=== PATIENT | female | born 1945 | race Caucasian/White ===

== ENCOUNTER → 2020-12-07 | Outpatient (CLI) | payer MEDICARE ==
[2014-08-27 13:05] VITALS: BP 166/90
[~2020-12-07] MED LIST: LEVO25TA4 PO; MAGN27TA3 PO; METH4TAB2 PO
--- NOTE | 2020-12-07 10:26 | RAD ---
EXAM: Bilateral digital screening mammogram with tomosynthesis. HISTORY: 74-year-old female presents for screening mammography. TECHNIQUE: Full-field digital craniocaudal and mediolateral oblique 2D and 3D tomosynthesis images of both breasts are obtained for evaluation. Computer aided detection was applied. COMPARISON: 07/03/2015 BREAST PARENCHYMAL DENSITY: Level A - Mostly fat. FINDINGS: There is no new suspicious mass, microcalcification or region of architectural distortion. There is stable areas of nodularity and asymmetry within both breasts, allowing for differences in im aging technique. There has been interval increase in benign calcifications within the anterior right breast. No suspicious calcification is seen. IMPRESSION: BI-RADS Category 2: Benign finding(s). RECOMMENDATION: Annual mammography is recommended. If your mammogram demonstrates that you have dense breast tissue, which could hide abnormalities, and if you have other risk factors for breast cancer that have been identified, you might benefit from s upplemental screening tests that may be suggested by your ordering physician. Dense breast tissue, i n and of itself, is a relatively common condition. This information is not provided to cause undue c oncern, but rather to raise your awareness and to promote discussion with your physician regarding th e presence of other risk factors, in addition to dense breast tissue. A report of your mammography re sults will be sent to you and your physician. You should contact your physician if you have any ques tions or concerns regarding this report. Mammography is a sensitive method for finding small breast cancers, but it does not detect them all a nd is not a substitute for careful clinical examination. A negative mammogram does not negate a clin ically suspicious finding and should not result in delay in biopsying a clinically suspicious abnorma lity. PQRS compliance statement - Patient information was entered into a reminder system with a target due date for the next mammogram. "Our facility is accredited by the [employer] Mammography Program." Electronically signed by: Lela Quarles MD (12/07/2020 10:23 AM) [id number]
== END ==
LOC: MAMMO 08:27
PROVIDERS: ATTEND Family Medicine
DX: Z12.31 Encounter for screening mammogram for malignant neoplasm of breast (principal)
CPT/HCPCS: 77063; 77067

== ENCOUNTER 2021-05-23 18:53 | Inpatient (IN) | payer MEDICARE ==
[~2021-05-23] VITALS: Ht 165.1 cm; Wt 110.0 kg
[2021-05-23] MEDS ORDERED: IPRATRPIUM/ALBUTEROL 0.5/2.5MG 3 ML NEBU. ONE ×2 (19:22→19:33)
--- NOTE | 2021-05-23 19:42 | PHYS DOC ---
Past History Past Medical History: COPD, Hypothyroid (COLE ROMERO APRN) Past Surgical History: Other (COLE ROMERO APRN) Alcohol Use: None Drug Use: None (COLE ROMERO APRN) General Adult EDM: Chief Complaint: SHORTNESS OF BREATH HPI: HPI: Patient is a 75-year-old female who presents with shortness of breath and COPD exacerbation. Patient states symptoms started on Monday and have progressively gotten worse. EMS states patient's O2 was 88% on arrival. Patient was placed on 3 L. Denies fever, recent illness or exposure to a sick contact. Patient is a smoker. History of hypertension and COPD. Patient is not vaccinated for Covid. (COLE ROMERO APRN) Review of Systems: Review of Systems: Constitutional: Denies fever or chills Eyes: Denies change in visual acuity HENT: Denies nasal congestion or sore throat Respiratory: Denies cough or shortness of breath Cardiovascular: Denies chest pain or edema GI: Denies abdominal pain, nausea, vomiting, bloody stools or diarrhea : Denies dysuria Musculoskeletal: Denies back pain or joint pain Integument: Denies rash Neurologic: Denies headache, focal weakness or sensory changes Endocrine: Denies polyuria or polydipsia Lymphatic: Denies swollen glands Psychiatric: Denies depression or anxiety (COLE ROMERO APRN) Current Medications: Current Meds: Current Medications Medications (Trade) Dose Ordered Sig/Artie Start Time Stop Time Status Last Admin Dose Admin Albuterol/ Ipratropium (Duoneb) 3 ml STK-MED ONCE 05/23/21 19:33 05/23/21 19:34 DC (COLE ROMERO APRN) Allergies: Allergies: Allergies Coded Allergies Type Severity Reaction Last Updated Verified tetanus immune globulin Allergy Unknown 08/27/14 No (COLE ROMERO APRN) Physical Exam: PE: Constitutional: Well developed, well nourished, no acute distress, non-toxic appearance. [] HENT: Normocephalic, atraumatic, bilateral external ears normal, oropharynx moist, no oral exudates, nose normal. [] Eyes: PERRLA, EOMI, conjunctiva normal, no discharge. [] Neck: Normal range of motion, no tenderness, supple, no stridor. [] Cardiovascular:Heart rate regular rhythm, no murmur [] Lungs & Thorax: Bilateral breath wheezing, coarse Abdomen: Bowel sounds normal, soft, no tenderness, no masses, no pulsatile masses. [] Skin: Warm, dry, no erythema, no rash. [] Back: No tenderness, no CVA tenderness. [] Extremities: No tenderness, no cyanosis, no clubbing, ROM intact, no edema. [] Neurologic: Alert and oriented X 3, normal motor function, normal sensory function, no focal deficits noted. [] Psychologic: Anxious affect (COLE ROMERO APRN) Current Patient Data: Vital Signs: Vital Signs Date Time Temp Pulse Resp B/P (MAP) Pulse Ox O2 Delivery O2 Flow Rate FiO2 05/23/21 18:57 98.2 65 22 96 Nasal Cannula 3.0 (COLE ROMERO APRN) EKG: EKG: Sinus rhythm, abnormal left axis deviation, heart rate 80 bpm. No STEMI. [] (COLE ROMERO APRN) Radiology/Procedures: Radiology/Procedures: []Exam: Chest one view INDICATION: Shortness of breath TECHNIQUE: Frontal and lateral views the chest Comparisons: None FINDINGS: The cardiomediastinal silhouette and pulmonary vessels are within normal limits. The lung and pleural spaces are clear. IMPRESSION: No acute cardiopulmonary process. Electronically signed by: Diaz Aldana MD (05/23/2021 9:40 PM) [facility] (COLE ROMERO APRN) Heart Score: C/O Chest Pain: No Risk Factors: Risk Factors: DM, Current or recent (<one month) smoker, HTN, HLP, family history of CAD, obesity. Risk Scores: Score 0 - 3: 2.5% MACE over next 6 weeks - Discharge Home Score 4 - 6: 20.3% MACE over next 6 weeks - Admit for Clinical Observation Score 7 - 10: 72.7% MACE over next 6 weeks - Early Invasive Strategies (COLE ROMERO APRN) Course & Med Decision Making: Course & Med Decision Making Pertinent Labs and Imaging studies reviewed. (See chart for details) [] 75-year-old female presents with shortness of breath that started on Monday. Patient is a history of COPD but does not wear home oxygen. When patient was taken off oxygen her sats dropped to 88-89%. Patient said to be on 3 L of oxygen while in the ER to keep oxygen saturation above 90%. Patient's oxygen saturation has stayed at 93-94%. Patient given breathing treatment to help with symptoms. Chest x-ray is unremarkable. All labs unremarkable. Influenza positive. Patient requesting second breathing treatment. Discussed results with patient. I advised patient she would need to be admitted to the hospital for hypoxia. Patient states that she agrees with admission plan. I called Dr. Wright who is willing to accept patient on med telemetry for hypoxia and COPD Exacerbation, in [facility]. Patient given Levaquin, dexamethasone, Tamiflu while in the ER. VBG is pending results. (COLE ROMERO APRN) Dragon Disclaimer: Dragon Disclaimer: This electronic medical record was generated, in whole or in part, using a voice recognition dictation system. (COLE ROMERO APRN) Departure Departure: Condition: STABLE Referrals: TARA KHALIL MD (PCP) Dragon Disclaimer This chart was dictated in whole or in part using Voice Recognition software in a busy, high-work load, and often noisy Emergency Department environment. It may contain unintended and wholly unrecognized errors or omissions. (BURKE PEARL MD) Attending Signature Attending Signature I have participated in the care of this patient and I have reviewed and agree with all pertinent clinical information above including history, exam, and recommendations. (BURKE PEARL MD) COLE ROMERO APRN May 23, 2021 19:42 BURKE PEARL MD May 24, 2021 04:56
[2021-05-23] MEDS ORDERED: DEXAMETHASONE SOD PHOS 10 MG/ML VIAL. IVP ONE (19:45)
[2021-05-23 20:10] LABS: CALCIUM 9.6 mg/dL (8.5-10.1); CREATININE 0.8 mg/dL (0.6-1.0); GFR 70.1
[2021-05-23 20:16] LABS: ALBUMIN 3.6 g/dL (3.4-5.0); ALBUMIN/GLOBULIN RATIO 0.9 (1.0-1.7); MAGNESIUM 1.9 mg/dL (1.8-2.4); TOTAL BILIRUBIN 0.7 mg/dL (0.2-1.0); TOTAL PROTEIN 7.6 g/dL (6.4-8.2)
[2021-05-23 20:46] LABS: BASO % 1 % (0-3); EOS % 1 % (0-3); HEMATOCRIT 39.7 % (36.0-47.0); HEMOGLOBIN 13.4 g/dL (12.0-15.5); LYMPH # 1.1 x10^3/uL (1.0-4.8); LYMPH % 15 % (24-48); MEAN CORPUSCULAR HEMOGLOBIN 29 pg (25-35); MEAN CORPUSCULAR HGB CONC 34 g/dL (31-37); MEAN CORPUSCULAR VOLUME 85 fL (79-100); MONO # 0.6 x10^3/uL (0.0-1.1); MONO % 8 % (0-9); NEUT # 5.6 x10^3uL (1.8-7.7); NEUT % 76 % (31-73); PLATELET COUNT 142 x10^3/uL (140-400); RED BLOOD COUNT 4.68 x10^6/uL (3.50-5.40); RED CELL DISTRIBUTION WIDTH 14.7 % (11.5-14.5); WHITE BLOOD COUNT 7.3 x10^3/uL (4.0-11.0)
--- NOTE | 2021-05-23 21:43 | RAD ---
Exam: Chest one view INDICATION: Shortness of breath TECHNIQUE: Frontal and lateral views the chest Comparisons: None FINDINGS: The cardiomediastinal silhouette and pulmonary vessels are within normal limits. The lung and pleural spaces are clear. IMPRESSION: No acute cardiopulmonary process. Electronically signed by: Diaz Aldana MD (05/23/2021 9:40 PM) JUAAN
[2021-05-23 22:03] LABS: INFLUENZA A PATIENT NEGATIVE (NEGATIVE)
[2021-05-23 22:06] LABS: INFLUENZA B PATIENT POSITIVE (NEGATIVE)
[2021-05-23] MEDS ORDERED: IPRATROPIUM BROMIDE 0.5 MG/2.5 ML NEBU. NEB ONE (22:30)
[2021-05-23] MEDS: IV NORMAL SALINE 1,000ML 1,000 ML IV SCH (23:00)
[2021-05-23] MEDS ORDERED: OSELTAMIVIR 75 MG CAPSULE PO ONE (23:00)
[2021-05-23 23:50] VITALS: BP 167/100
[2021-05-24] MEDS ORDERED: CRAN250C PO (00:50)
[2021-05-24] MEDS ORDERED: UBID100C26 PO (00:50)
[2021-05-24] MEDS ORDERED: LEVO112T4 PO (00:50)
[2021-05-24] MEDS ORDERED: ASPI-630 PO (00:50)
[2021-05-24] MEDS ORDERED: POTA8TAB57 PO (00:50)
[2021-05-24] MEDS ORDERED: OXYC-325 PO (00:50)
[2021-05-24] MEDS ORDERED: DOCU-109 PO (00:50)
[2021-05-24] MEDS ORDERED: METF500T16 PO (00:50)
[2021-05-24] MEDS ORDERED: MORP-16 PO (00:50)
[2021-05-24] MEDS ORDERED: MAGN200T PO (00:50)
[2021-05-24] MEDS ORDERED: VITA400T6 PO (00:50)
[2021-05-24] MEDS ORDERED: CARV12.53 PO (00:50)
[2021-05-24] MEDS: oxyCODONE/APAP 5/325 1 TAB TABLET PO PRN ×4 (03:56→19:02)
[2021-05-24] MEDS ORDERED: IPRATROPIUM BROMIDE 0.5 MG/2.5 ML NEBU. ONE (05:08)
[2021-05-24] MEDS: IPRATROPIUM BROMIDE 0.5 MG/2.5 ML NEBU. NEB SCH ×4 (05:33→19:24)
[2021-05-24 05:50] VITALS: BP 162/88
[2021-05-24] MEDS: LEVOTHYROXINE 112 MCG TABLET PO SCH (06:11)
[2021-05-24] MEDS: ASPIRIN CHEWABLE 81 MG TABLET. PO SCH (07:42)
[2021-05-24] MEDS: metFORMIN 500 MG TABLET PO SCH ×2 (07:42→17:01)
[2021-05-24] MEDS: OSELTAMIVIR 75 MG CAPSULE PO SCH ×2 (07:42→20:24)
[2021-05-24] MEDS: POTASSIUM CHLORIDE 10 MEQ TABLET.ER. PO SCH (07:42)
[2021-05-24] MEDS: MAGNESIUM OXIDE 400 MG TABLET PO SCH (07:42)
[2021-05-24] MEDS: CARVEDILOL 12.5 MG TABLET PO SCH ×2 (07:42→17:01)
[2021-05-24] MEDS: MORPHINE ER 30 MG TABLET.ER PO SCH ×2 (07:43→20:25)
[2021-05-24] MEDS: DEXAMETHASONE SOD PHOS 10 MG/ML VIAL. IV SCH (07:44)
[2021-05-24] MEDS ORDERED: NON FORMULARY ITEM (Cranberry Extract (Cranberry) 250 MG) PO SCH (09:00)
[2021-05-24 11:05] VITALS: BP 158/84
[2021-05-24] MEDS: IV NORMAL SALINE 1,000ML 1,000 ML IV SCH ×2 (12:34→20:34)
[2021-05-24 14:50] VITALS: BP 168/97
[2021-05-24] MEDS ORDERED: KETOROLAC 30 MG/ML VIAL. IVP ONE (16:45)
--- NOTE | 2021-05-24 17:09 | HP ---
DATE OF SERVICE: 05/24/2021 ADMIT DATE: 05/23/2021 HISTORY OF PRESENT ILLNESS: The patient is a 75-year-old female patient who presented to the Emergency Room with a complaint of shortness of breath. Her symptoms started last Monday and progressed since then. She did complain of headache, cough and shortness of breath and generalized aches and pains. However, she denied any chills, rigors or fever. She denied any ill contact. She is a smoker, quit smoking last Monday. She is not vaccinated for COVID or the flu. She was extensively evaluated in the Emergency Room and has had lab work and imaging studies. Her lab work was mostly unremarkable and her chest x-ray showed no acute cardiopulmonary process; however, she was positive for influenza B. Her coronavirus by PCR was negative. The patient was admitted with influenza B as well as COPD exacerbation. PAST MEDICAL HISTORY: Significant for type 2 diabetes mellitus, hypertension, chronic obstructive pulmonary disease, liver cirrhosis and generalized osteoarthritis. PAST SURGICAL HISTORY: Significant for right shoulder surgery, 5 back surgeries, 3 C-sections, appendectomy, total abdominal hysterectomy, tonsillectomy, left breast biopsy and right eye cataract extraction. ALLERGIES: SHE IS ALLERGIC TO TETANUS VACCINE. MEDICATIONS: She is currently on the following medication: She is on carvedilol 12.5 mg twice a day, aspirin 81 mg once a day, morphine sulfate extended release 30 mg twice a day, oxycodone/APAP 5/325 one tablet 4 times a day as needed, magnesium oxide 200 mg once a day, potassium chloride 8 mEq once a day, Colace 100 mg once a day as needed. She is on metformin 500 mg twice a day, levothyroxine sodium 112 mcg once a day, vitamin E 400 units once a day, cranberry extract 250 mg once a day, CoQ10 100 mg once a day. FAMILY HISTORY: She has 4 sisters and 2 brothers, 1 brother because of complication of diabetes. Her father at the age of 77 because of complication of diabetes and what seems to be severe peripheral vascular disease. Mother at age of 83 because of cerebrovascular accident. SOCIAL HISTORY: She lives alone. She has 2 sons and 1 daughter. She quit smoking 4 days ago. Does not drink alcohol or use any drugs. 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 REVIEW OF SYSTEMS: The patient has denied any blurring of vision. Did have cataract removed from her right eye, but denied any glaucoma or macular degeneration. Denied any earache, tinnitus or sensory deafness. Denied nosebleed, stuffy nose or postnasal drip. Denied any sore throat, sore tongue, toothache, hoarseness of voice or difficulty swallowing. Denied any nausea, vomiting, diarrhea or constipation. PHYSICAL EXAMINATION: GENERAL: On arrival to the Emergency Room, she was somewhat tachypneic, but there was no pallor, jaundice, cyanosis, no lymphadenopathy, no thyromegaly, no jugular venous distention. No lower limb edema. VITAL SIGNS: Her heart rate was 65, her blood pressure was 167/100, temperature was 98.4, respiratory rate 22, and oxygen saturation was 96% on 2 liters of oxygen. HEAD, EYES, EARS, NOSE, AND THROAT: Normocephalic, atraumatic. NECK: Supple. HEART: Normal first and second heart sounds. No gallop, rub or murmur. CHEST: Showed central trachea. According to the ER physician, when she arrived, her lungs showed bilateral wheezing, but no crepitation. ABDOMEN: Her abdomen was distended, soft, nontender. NEUROLOGIC: She was grossly intact. LABORATORY DATA: Her lab work on arrival showed her white cell count was 7300, hemoglobin 13, hematocrit 39, MCV 85 and platelet count of 142,000 with normal manual differential. Her chemistry showed a serum sodium 137, potassium 4, chloride 98, bicarbonate 28, anion gap of 11, BUN 9, creatinine was 0.8. Estimated GFR was 70 mL per minute. Her glucose 155. Lactic acid was 1.3. Calcium was 9.6, magnesium was 1.9. Total bilirubin, AST, ALT, alkaline phosphatase were normal. Her total protein 7.6, albumin 3.6. Her coronavirus by PCR was negative. Her influenza A was negative and influenza B was positive. ASSESSMENT AND PLAN: In summary, this is a 75-year-old female patient who was admitted with influenza B and chronic obstructive pulmonary disease exacerbation. She has multiple other medical problems including type 2 diabetes, hypertension, liver cirrhosis and generalized osteoarthritis. The plan is to reconcile all her medications. We added Tamiflu 75 mg twice a day. We will continue with all her other medication. We will continue with nebulized treatment and steroids and monitor her response on a daily basis. She is now continued also on the oxygen supplementation as needed. ELIZABETH/JULIANA DR: Jenelle TID: [id number]
[2021-05-24 19:52] VITALS: BP 155/72
[2021-05-24] MEDS: VITAMIN E. 400 UNIT CAPSULE. PO SCH (20:24)
[2021-05-24] MEDS ORDERED: NON FORMULARY ITEM (Ubidecarenone (Coq-10) 100 MG) PO SCH (21:00)
[2021-05-24] MEDS: KETOROLAC 15 MG/ML VIAL. IVP PRN (22:42)
[2021-05-24 22:52] VITALS: BP 154/72
[2021-05-25] MEDS: oxyCODONE/APAP 5/325 1 TAB TABLET PO PRN ×3 (02:57→19:28)
[2021-05-25] MEDS: IPRATROPIUM BROMIDE 0.5 MG/2.5 ML NEBU. NEB SCH ×4 (04:54→19:11)
[2021-05-25] MEDS: KETOROLAC 15 MG/ML VIAL. IVP PRN ×2 (05:21→15:34)
[2021-05-25] MEDS: LEVOTHYROXINE 112 MCG TABLET PO SCH (05:21)
[2021-05-25 05:32] VITALS: BP 161/77
--- NOTE | 2021-05-25 06:33 | EKG ---
[address] [address] Test Date: 2021-05-23 Test Time: 19:11:39 Pat Name: LORENZO LUCERO Department: Room: 123 A Gender: F Maintenance Mechanic Telephone: CECILIA : 1945 Requested By: TAWANA CARRIZALES Order Number: [id number] Reading MD: Doc Chowdary MD Measurements Intervals [place] Rate: 80 P: 56 ME: 182 QRS: -40 QRSD: 86 T: 34 QT: 352 QTc: 409 Interpretive Statements SINUS RHYTHM Electronically Signed On 05-25-2021 9:45:44 VP INFORMATION TECHNOLOGY by Doc Chowdary MD
[2021-05-25] MEDS: CARVEDILOL 12.5 MG TABLET PO SCH ×2 (07:40→17:33)
[2021-05-25] MEDS: metFORMIN 500 MG TABLET PO SCH ×2 (07:40→17:32)
[2021-05-25] MEDS: POTASSIUM CHLORIDE 10 MEQ TABLET.ER. PO SCH (08:06)
[2021-05-25] MEDS: OSELTAMIVIR 75 MG CAPSULE PO SCH ×2 (09:02→21:06)
[2021-05-25] MEDS: MAGNESIUM OXIDE 400 MG TABLET PO SCH (09:02)
[2021-05-25] MEDS: MORPHINE ER 30 MG TABLET.ER PO SCH ×2 (09:03→21:06)
[2021-05-25] MEDS: DEXAMETHASONE SOD PHOS 10 MG/ML VIAL. IV SCH (09:05)
[2021-05-25] MEDS: ASPIRIN CHEWABLE 81 MG TABLET. PO SCH (09:08)
[2021-05-25 10:52] VITALS: BP 175/90
[2021-05-25 15:26] VITALS: BP 147/73
[2021-05-25 19:52] VITALS: BP 157/73
[2021-05-25] MEDS: VITAMIN E. 400 UNIT CAPSULE. PO SCH (21:06)
[2021-05-25 23:41] VITALS: BP 150/67
--- NOTE | 2021-05-25 23:48 | PN ---
DATE: 05/25/2021 SUBJECTIVE: The patient is resting slightly propped up in bed, feeling generally better than yesterday, continued to have headache and cough. Continues with complaint of generalized aches and pains. PHYSICAL EXAMINATION: GENERAL: When I examined her this afternoon, she was resting slightly propped up in bed, in no apparent distress. No pallor, jaundice, cyanosis, or thyromegaly. No jugular venous distention. No limb edema. VITAL SIGNS: Her heart rate was 63, blood pressure 147/73, temperature 98.3, respiratory rate 20, and oxygen saturation was 92% on room air. HEAD, EYES, EARS, NOSE, AND THROAT: Normocephalic, atraumatic. NECK: Supple. HEART: Normal first and second heart sounds, no gallop, rub or murmur. CHEST: Shows central trachea, equal bilateral expansion, air entry, vesicular breath sounds. No crepitation or rhonchi. ABDOMEN: Distended, soft, nontender. NEUROLOGIC: She is grossly intact. Her intake and output are incompletely recorded. LABORATORY DATA: There is no lab work done. ASSESSMENT: 1. This is a 75-year-old female patient admitted with influenza B. 2. Chronic obstructive pulmonary disease exacerbation. 3. She has multiple other medical problems including: A. Type 2 diabetes mellitus. B. Hypertension. C. Liver cirrhosis. D. Generalized osteoarthritis. PLAN: To continue with Tamiflu 75 mg twice a day. Continue with nebulized albuterol and Atrovent. Continue with steroids. I will repeat her labs again tomorrow and if she is feeling much improved, she can be discharged on a tapering course of steroids as well as Tamiflu. PETER/MARCELINO DR: Jenelle TID: [id number]
[2021-05-26] MEDS: KETOROLAC 15 MG/ML VIAL. IVP PRN ×2 (00:51→19:16)
[2021-05-26] MEDS: IPRATROPIUM BROMIDE 0.5 MG/2.5 ML NEBU. NEB SCH ×4 (04:49→20:07)
[2021-05-26] MEDS: LEVOTHYROXINE 112 MCG TABLET PO SCH (05:54)
[2021-05-26] MEDS: oxyCODONE/APAP 5/325 1 TAB TABLET PO PRN ×3 (05:54→19:15)
[2021-05-26 06:03] VITALS: BP 172/72
[2021-05-26 06:23] LABS: HEMATOCRIT 38.2 % (36.0-47.0); HEMOGLOBIN 12.9 g/dL (12.0-15.5); RED BLOOD COUNT 4.47 x10^6/uL (3.50-5.40); RED CELL DISTRIBUTION WIDTH 15.1 % (11.5-14.5); WHITE BLOOD COUNT 10.3 x10^3/uL (4.0-11.0)
[2021-05-26 06:34] LABS: ALBUMIN 3.2 g/dL (3.4-5.0); ALBUMIN/GLOBULIN RATIO 0.9 (1.0-1.7); CALCIUM 9.3 mg/dL (8.5-10.1); CREATININE 0.9 mg/dL (0.6-1.0); GFR 61.2; POTASSIUM 4.3 mmol/L (3.5-5.1); TOTAL BILIRUBIN 0.4 mg/dL (0.2-1.0); TOTAL PROTEIN 6.9 g/dL (6.4-8.2)
[2021-05-26] MEDS: ASPIRIN CHEWABLE 81 MG TABLET. PO SCH (08:33)
[2021-05-26] MEDS: CARVEDILOL 12.5 MG TABLET PO SCH ×2 (08:33→16:55)
[2021-05-26] MEDS: MAGNESIUM OXIDE 400 MG TABLET PO SCH (08:33)
[2021-05-26] MEDS: metFORMIN 500 MG TABLET PO SCH ×2 (08:33→16:55)
[2021-05-26] MEDS: MORPHINE ER 30 MG TABLET.ER PO SCH ×2 (08:34→20:07)
[2021-05-26] MEDS: OSELTAMIVIR 75 MG CAPSULE PO SCH ×2 (08:34→20:07)
[2021-05-26] MEDS: DEXAMETHASONE SOD PHOS 10 MG/ML VIAL. IV SCH (08:34)
[2021-05-26] MEDS: POTASSIUM CHLORIDE 10 MEQ TABLET.ER. PO SCH (08:34)
[2021-05-26 11:11] VITALS: BP 181/71
--- NOTE | 2021-05-26 15:32 | PN ---
DATE: 05/26/2021 ATTENDING PHYSICIANS: Dr. Wright and Dr. Nicolas. SUBJECTIVE: Dyspneic with minimal exertion, dry nonproductive cough. OBJECTIVE FINDINGS: VITAL SIGNS: Blood pressure this morning is 181/71, pulse is 88 and regular. She is afebrile. Oxygen saturation 93% on room air. HEENT: Head is without trauma. Pupils are reactive. Sclerae nonicteric. Oropharynx clear. NECK: Supple. LUNGS: Diffuse wheezing in the bases. CARDIOVASCULAR: Showed regular heart tones. No gallop. ABDOMEN: Soft, obese. EXTREMITIES: Without edema. NEUROLOGIC: Focally intact. IMAGING STUDIES: Chest x-ray reviewed. LABORATORY DATA: Hemoglobin 12.9 g. White count normal. Creatinine, BUN, electrolytes all within normal range. ASSESSMENT: 1. A 75-year-old female smoker with acute exacerbation of chronic obstructive pulmonary disease. 2. Influenza B virus. 3. Type 2 diabetes. 4. Cirrhosis of the liver. PLAN: 1. Tamiflu has been ordered already. 2. She is not requiring supplemental oxygen. 3. Nebulizer therapy. 4. Discharge planning for tomorrow. LUMA/JULIANA EL: Ashely TID: [id number]
[2021-05-26 15:50] VITALS: BP 175/77
[2021-05-26 19:30] VITALS: BP 167/74
[2021-05-26] MEDS: VITAMIN E. 400 UNIT CAPSULE. PO SCH (20:07)
[2021-05-27] MEDS: MORPHINE ER 30 MG TABLET.ER PO SCH (00:07)
[2021-05-27 00:31] VITALS: BP 185/81
[2021-05-27] MEDS ORDERED: cloNIDine TTS-3 1 PATCH PATCH TD ONE (00:45)
[2021-05-27 05:28] VITALS: BP 181/86
[2021-05-27] MEDS: LEVOTHYROXINE 112 MCG TABLET PO SCH (05:35)
[2021-05-27] MEDS: IPRATROPIUM BROMIDE 0.5 MG/2.5 ML NEBU. NEB SCH ×2 (05:44→09:12)
[2021-05-27 08:16] VITALS: BP 181/86
[2021-05-27] MEDS: metFORMIN 500 MG TABLET PO SCH (08:16)
[2021-05-27] MEDS: CARVEDILOL 12.5 MG TABLET PO SCH (08:16)
[2021-05-27] MEDS: ASPIRIN CHEWABLE 81 MG TABLET. PO SCH (08:16)
[2021-05-27] MEDS: OSELTAMIVIR 75 MG CAPSULE PO SCH (08:16)
[2021-05-27] MEDS: POTASSIUM CHLORIDE 10 MEQ TABLET.ER. PO SCH (08:17)
[2021-05-27] MEDS: MAGNESIUM OXIDE 400 MG TABLET PO SCH (08:18)
[2021-05-27] MEDS: oxyCODONE/APAP 5/325 1 TAB TABLET PO PRN (08:18)
[2021-05-27] MEDS: DEXAMETHASONE SOD PHOS 10 MG/ML VIAL. IV SCH (08:20)
--- NOTE | 2021-05-27 10:31 | DS ---
DATE OF DISCHARGE: 05/27/2021 ATTENDING PHYSICIAN: Dr. Wright. FINAL DISCHARGE DIAGNOSES: 1. Exacerbation of chronic obstructive pulmonary disease. 2. Influenza B infection. 3. Type 2 diabetes. 4. History of cirrhosis of the liver. 5. Chronic pain syndrome. 6. Labile hypertension. 7. Continued tobacco use. HISTORY AND PHYSICAL: The patient is a 75-year-old female, fairly independent, admitted with dyspnea and exertional symptoms. She tested positive for influenza B. She was admitted for further treatment and evaluation. PHYSICAL EXAMINATION: Please see the dictated note. PERTINENT LABORATORY AND X-RAY STUDIES: Admission hemoglobin was 13.4 g/dL with a white count of 7300. Electrolytes showed a sodium 137 mEq, potassium 4.0, creatinine was 0.8 mg/dL. Nonfasting blood sugar 115. Transaminases all within normal range. Chest x-ray showed no acute process, chronic changes identified. COURSE IN THE HOSPITAL: The patient was admitted. She was given Tamiflu. She was also given supplemental oxygen, which we were able to taper off quickly and she had adequate oxygen saturations on room air. Home meds were continued. Blood pressure is a bit labile from her smoking cessation. I did place a clonidine TTS 3 patch for the week. She did well. By the fourth hospital day, her vital signs were stable. Lungs were clear. She had adequate saturation on room air. She was ready for discharge. At this time, I recommended 3 more days of Tamiflu 75 mg p.o. b.i.d. Other home meds are unchanged. She will continue her aspirin daily, Coreg 12.5 mg b.i.d., docusate, Synthroid 112 mcg daily, metformin 500 mg p.o. b.i.d., MS sulfate as needed, oxycodone for breakthrough pain, potassium, and vitamin E. For now, we held her magnesium. Three more days of Tamiflu. She has a followup appointment in [address] Pierce. She will check her blood pressure then and her meds will be adjusted accordingly. Strong encouragement to avoid further tobacco use, whether or not she will quit smoking remains to be seen. The patient was then discharged from our hospital in stable condition with explicit instruction and followup care. Total discharge time spent [address]: Ashely TID: [id number] CC: TARA PIERCE
== END 2021-05-27 11:44 | disposition home or self-care (01) | DRG 193 ==
LOC: ER 18:53 → 1 SOUTH 23:34
PROVIDERS: ADMIT Internal Medicine; ATTEND Internal Medicine
PROC: 5A09357 Assistance with Respiratory Ventilation, Less than 24 Consecutive Hours, Continuous Positive Airway Pressure (ICD-10-PCS; principal; 2021-05-25)
DX: J10.1 Influenza due to other identified influenza virus with other respiratory manifestations (principal); J96.01 Acute respiratory failure with hypoxia; J45.901 Unspecified asthma with (acute) exacerbation; J44.1 Chronic obstructive pulmonary disease with (acute) exacerbation; E03.9 Hypothyroidism, unspecified; K74.60 Unspecified cirrhosis of liver; M15.9 Polyosteoarthritis, unspecified; G89.4 Chronic pain syndrome; E11.9 Type 2 diabetes mellitus without complications; I10 Essential (primary) hypertension; F17.200 Nicotine dependence, unspecified, uncomplicated; Z20.822 Contact with and (suspected) exposure to COVID-19; Z90.710 Acquired absence of both cervix and uterus; Z90.49 Acquired absence of other specified parts of digestive tract; Z98.42 Cataract extraction status, left eye; Z88.7 Allergy status to serum and vaccine; Z79.82 Long term (current) use of aspirin; Z83.3 Family history of diabetes mellitus; Z82.3 Family history of stroke
CPT/HCPCS: 36415; 71046; 80053; 83605; 83735; 85025; 85027; 87040; 87804; 93005; 94640; 99406; J1100; J1885; J1956; U0003; 99285-25; J7030